=== PATIENT | male | born 1945 | race Caucasian/White ===

== ENCOUNTER → 2020-09-24 10:54 | Outpatient (BNVA) | payer MEDICARE, BC, SELFPAY | PROVIDERS: Family Provider Nurse Practitioner Family; PCP Nurse Practitioner Family; Visit Provider Nurse Practitioner Family | DX: R19.8 Other specified symptoms and signs involving the digestive system and abdomen (principal); R19.5 Other fecal abnormalities; R53.83 Other fatigue; N39.0 Urinary tract infection, site not specified; Z79.899 Other long term (current) drug therapy | CPT/HCPCS: 81003; 82306; 84443 ==

== ENCOUNTER 2020-10-04 12:54 | Outpatient (CLI) | payer MEDICARE, BC, SELFPAY ==
--- NOTE | 2020-10-04 13:00 | XR_ITS ---
WS: [id number] ABDOMEN 1 VIEW(S) HISTORY: R19.5 - Other fecal abnormalities COMPARISON: None available. Moderate fecal retention throughout the colon. Moderate air distention of the small bowel. No obstruc tion. Several calcifications in the RIGHT pelvis. Calcification in the LEFT upper abdomen. No bone abnormality. XR/XR KUB [id number] IMPRESSION: Moderate constipation and fecal retention.
== END 2020-10-04 12:55 | disposition home or self-care (01) ==
PROVIDERS: PCP Nurse Practitioner Family; Visit Provider Nurse Practitioner Family
DX: R19.5 Other fecal abnormalities (principal); K59.00 Constipation, unspecified
CPT/HCPCS: 74018

== ENCOUNTER 2023-07-15 11:00 | Observation (INO) | payer MEDICARE, SELFPAY ==
[2023-07-15] VITALS (17 sets, daily range): BP systolic 87–122; BP diastolic 57–83; PULSE 68–141; RESP 15–20; TEMP 36.6–36.9; O2SAT 93–98; BMI 19.8
--- NOTE | 2023-07-15 11:29 | PC.NURSE ---
pt assessment pt states to he fell approx 7 days ago and had a headache for a few days. pt is now complaining of right sided abdominal pain for approx 5 days. no fever pt states. pt states normal appetite. pt states he has had indigestion. pt states bm yesterday. no blood in stool.
--- NOTE | 2023-07-15 11:33 | XR_ITS ---
WS: [id number] KUB, AP view, 07/15/2023 Clinical Data: abd pain Comparison: KUB, 10/04/2020 Findings: No abnormal intraabdominal masses or calcifications are seen. There is no dilatated small bowel or ev idence of obstruction. There is a large amount of fecal material throughout the colon. Monitor leads are on the abdominal wa ll. Impression: Large amount of fecal material in the colon.
--- NOTE | 2023-07-15 11:34 | XR_ITS ---
WS: [id number] Portable AP upright chest, 07/15/2023 Clinical Data: dyspnea/cough Comparison: None. Findings: No nodules, masses or effusions are seen. The heart is normal. The pulmonary vascularity is not increased. No pneumonia or pneumothorax is seen. The aortic arch and descending thoracic aorta s how tortuosity. There are monitor leads on the chest wall. Impression: Atherosclerosis.
--- NOTE | 2023-07-15 11:35 | ECG_ITS ---
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 Measurements Intervals [place] Rate: 120 P: 0 OR: 0 QRS: -3 QRSD: 85 T: 79 QT: 288 QTc: 408 Interpretive Statements ATRIAL FIBRILLATION WITH RAPID VENTRICULAR RESPONSE Nonspecific ST abnormality No previous ECG available for comparison Electronically Signed On 07-15-2023 16:27:48 ELECTRONIC SYSTEMS TECHNICIAN by Nohemi Villavicencio M.D. [email or web address] [id number]
--- NOTE | 2023-07-15 11:36 | ED_ITS ---
HPI - Abdominal Pain 2 General: Chief Complaint: ER Hold Stated Complaint: abd pain Time Seen by Provider: 07/15/23 11:23 Source: patient Mode of arrival: ambulatory History of Present Illness: 78-year-old male presents emergency room complaining of right-sided abdominal pain with no bowel movement for the last 4 days. He has had pain for about a week he states it began after he fell he stumbled in a hole outside was covered by leaves he fell essentially landing on his hands and knees few days later began having this cramping pain under the right lower ribs has not had any vomiting or diarrhea he has had decreased appetite. Denies fever sweats chills or shortness of breath. Patient denies history of atrial fibrillation he is not on any anticoagulation he does take sennosides MD elicited complaint: abdominal pain Onset (ago): day(s) (4) Location: RUQ Severity: moderate Quality: aching Radiation: none Exacerbating factors: eating Relieving factors: nothing Associated Symptoms: Reports bloating, GI cramping and poor appetite; Denies anorexia, belching, change in bowel habits, change in stool character, chills, coffee ground emesis, constipation, diarrhea, dyspepsia, dysuria, excessive flatus, fever(s), heartburn, hematochezia, hematuria, hematemesis, fecal incontinence, loose stools, melena, nausea, syncope and vomiting Review of Systems 2 Const: Denies: fever(s) or chills Card: Denies: chest pain or syncope Resp: Denies: dyspnea GI: Reports: bloating and GI cramping; Denies: abdominal pain, nausea, vomiting, hematemesis, coffee ground emesis, heartburn, diarrhea, constipation, belching, excessive flatus, fecal incontinence, change in bowel habits, change in stool character, hematochezia or melena : Denies: dysuria, urinary frequency, urinary urgency or hematuria Musc: Denies: neck pain or back pain Skin/Breast: Denies: rash PFSH ED 2 PFSH: Social History Smoking and tobacco/nicotine status: never used tobacco/nicotine Alcohol intake: never Substance/Drug Use: never Physical Exam 2 Const: GENERAL APPEARANCE: cooperative and comfortable O RIENTATION/CONSCIOUSNESS: Yes awake, Yes oriented to person, Yes oriented to place and Yes oriented to time HENMT: COMMON NORMALS: normocephalic, atraumatic and hearing grossly normal bilaterally HEAD & SCALP: normocephalic and atraumatic Resp: COMMON NORMALS: normal respiratory effort, No retractions, No use of accessory muscles and clear to auscultation bilaterally AUSCULTATION: clear to auscultation bilaterally Cardio: COMMON NORMALS: No murmurs present (Cardio) RATE: tachycardic R HYTHM: abnormal rhythm irregularly irregular GI: COMMON NORMALS: Soft to palpation and No hepatosplenomegaly present A USCULTATION: Yes normoactive bowel sounds PALPATION: Yes Soft to palpation, No Tenderness to palpation present (GI), No Guarding due to palpation present (GI) and Yes No hepatosplenomegaly present Extremity: COMMON NORMALS: normal to inspection, capillary refill normal, no clubbing, cyanosis or edema, no calf tenderness and no pedal edema Neuro: SENSORIUM/ORIENTATION: Yes oriented to person, Yes oriented to place and Yes oriented to time Skin: COMMON NORMALS: no rashes or lesions noted GENERAL SKIN EXAM: no rashes or lesions noted Course 2 Vital Signs: Vital signs: Vital Signs Temperature 97.9 F 07/15/23 11:10 Pulse Rate 96 07/15/23 13:47 Respiratory Rate 17 07/15/23 13:17 Blood Pressure 107/78 07/15/23 13:47 Pulse Oximetry 98 07/15/23 13:47 Oxygen Delivery Me thod Room Air 07/15/23 13:17 MDM - Abdominal Pain Medical Decision Making Patient presents with complaints of abdominal pain does look like he has a significant mount of constipation more concerning is he is in atrial fibrillation with rapid ventricular sponsor did improve with diltiazem and this is a new diagnosis for him we will place him on obs to achieve rate control and evaluate further. Discussed with hospitalist orders written Medical Records I reviewed the patient's medical records. Lab Data I reviewed the patient's lab results. 07/15/23 11:43 07/15/23 11:43 Labs/Radiology: Laboratory Results WBC 7.41 10^3/uL (3.29-11.43) 07/15/23 11:43 RBC 4.90 10^6/uL (3.85-5.65) 07/15/23 11:43 Hgb 15.50 g/dL (11.27-16.99) 07/15/23 11:43 Hct 46.1 % (37-53) 07/15/23 11:43 MCV 94.1 fl (82-101) 07/15/23 11:43 MCH 31.6 pg (27-33) 07/15/23 11:43 MCHC 33.6 g/dL (30-55) 07/15/23 11:43 RDW 13.2 % (12.1-15.1) 07/15/23 11:43 Plt Count 149 10^3/cmm (157-399) L 07/15/23 11:43 MPV 10.6 fL (7.4-10.4) H 07/15/23 11:43 Neut % (Auto) 79.5 % 07/15/23 11:43 Lymph % (Auto) 9.9 % 07/15/23 11:43 Charles % (Auto) 9.6 % 07/15/23 11:43 Eos % (Auto) 0.3 % 07/15/23 11:43 Baso % (Auto) 0.4 % 07/15/23 11:43 Neut # (Auto) 5.90 10^3/uL (1.8-7.7) 07/15/23 11:43 Lymph # (Auto) 0.7 10^3/uL (0.8-4.8) L 07/15/23 11:43 Charles # (Auto) 0.7 10^3/uL (0.2-0.9) 07/15/23 11:43 Eos # (Auto) 0.0 10^3/uL (0.0-0.8) 07/15/23 11:43 Baso # (Auto) 0.0 10^3/uL (0.0-0.1) 07/15/23 11:43 Nucleated RBC % (auto) 0 % 07/15/23 11:43 Nucleated RBCs # 0.0 /100WBC 07/15/23 11:43 Sodium 136 mmol/L (136-145) 07/15/23 11:43 Potassium 3.9 mmol/L (3.5-5.1) 07/15/23 11:43 Chloride 98 mmol/L (98-107) 07/15/23 11:43 Carbon Dioxide 26 mmol/L (22-29) 07/15/23 11:43 Anion Gap 15.9 (5-19) 07/15/23 11:43 BUN 16 mg/dL (8-23) 07/15/23 11:43 Creatinine 0.9 mg/dL (0.7-1.2) 07/15/23 11:43 GFR Calculation Not Reportable 07/15/23 11:43 Glucose 116 mg/dL (65-115) H 07/15/23 11:43 Calculated Osmolality 284 mOsm/kg (285-295) L 07/15/23 11:43 Calcium 9.9 mg/dL (8.5-10.5) 07/15/23 11:43 Total Bilirubin 0.7 mg/dL (0.15-1.2) 07/15/23 11:43 AST 36 U/L (0-40) 07/15/23 11:43 ALT 17 U/L (0-41) 07/15/23 11:43 Alkaline Phosphatase 81 U/L (40-130) 07/15/23 11:43 Troponin T Baseline 13 ng/L (0-15) 07/15/23 11:43 Total Protein 7.6 g/dL (6.6-8.7) 07/15/23 11:43 Albumin 4.2 g/dL (3.5-5.2) 07/15/23 11:43 Globulin 3.4 g/dL (1.3-4.6) 07/15/23 11:43 TSH 1.50 uIU/mL (0.27-4.20) 07/15/23 11:43 Urine Color Dark yellow (Yellow) 07/15/23 11:39 Urine Appearance Clear (CLEAR) 07/15/23 11:39 Urine pH 5 (5-7) 07/15/23 11:39 Ur Specific [place] 1.030 (1.005-1.030) 07/15/23 11:39 Urine Protein Neg (Negative) 07/15/23 11:39 Urine Glucose (UA) Norm (Normal) 07/15/23 11:39 Urine Ketones 1+ (Negative) H 07/15/23 11:39 Urine Blood 2+ (Negative) H 07/15/23 11:39 Urine Nitrate Negative (Negative) 07/15/23 11:39 Urine Bilirubin Neg (Negative) 07/15/23 11:39 Urine Urobilinogen Norm mg/dL (Negative) 07/15/23 11:39 Ur Leukocyte Esterase Negative (Negative) 07/15/23 11:39 Urine RBC Rare /hpf (0-2) 07/15/23 11:39 Urine WBC None /hpf (0-5) 07/15/23 11:39 Ur Squamous Epith Cells Rare /hpf (0-5) 07/15/23 11:39 Amorphous Sediment Not Reportable 07/15/23 11:39 Urine Bacteria Trace /hpf (NONE) 07/15/23 11:39 Hyaline Casts 0-4 /lpf H 07/15/23 11:39 Urine Mucus 2+ /hpf 07/15/23 11:39 All radiology interpretation(s) finalized by discharge Discharge Plan Discharge Patient Disposition: Placed in Observation Admit Provider: Michell Nash Clinical Impression: Atrial fibrillation, new onset, Constipation Coding Level of Care Code ED 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
[2023-07-15 11:54] LABS: Basophils % 0.4 %; Eosinophils % 0.3 %; Hematocrit 46.1 % (37-53); Lymphocytes # 0.7 10^3/uL (0.8-4.8); Lymphocytes % 9.9 %; Mean Corpuscular HGB Conc 33.6 g/dL (30-55); Mean Corpuscular Hemoglobin 31.6 pg (27-33); Mean Corpuscular Volume 94.1 fl (82-101); Mean Platelet Volume 10.6 fL (7.4-10.4); Monocytes # 0.7 10^3/uL (0.2-0.9); Monocytes % 9.6 %; Neutrophils % 79.5 %; Nucleated Red Blood Cells % 0 %; Platelet Count 149 10^3/cmm (157-399); Red Cell Distribution Width 13.2 % (12.1-15.1); White Blood Count 7.41 10^3/uL (3.29-11.43)
[2023-07-15] MEDS: dilTIAZem 5 mg/mL SDV 5 mL 10 MG IVP (12:02)
[2023-07-15] MEDS: dilTIAZem 100 MG in sodium chloride 0.9% (add-van) 100 ML IV (12:35)
[2023-07-15 12:36] LABS: Alanine Aminotransferase 17 U/L (0-41); Albumin Level 4.2 g/dL (3.5-5.2); Alkaline Phosphatase 81 U/L (40-130); Anion Gap 15.9 (5-19); Aspartate Amino Transferase 36 U/L (0-40); Blood Urea Nitrogen 16 mg/dL (8-23); Calcium 9.9 mg/dL (8.5-10.5); Carbon Dioxide 26 mmol/L (22-29); Chloride 98 mmol/L (98-107); Globulin 3.4 g/dL (1.3-4.6); Glucose 116 mg/dL (65-115); Osmolality Calculated 284 mOsm/kg (285-295); Potassium 3.9 mmol/L (3.5-5.1); Sodium 136 mmol/L (136-145); Total Bilirubin 0.7 mg/dL (0.15-1.2); Total Protein 7.6 g/dL (6.6-8.7)
[2023-07-15] MEDS: sodium chloride 0.9% 1,000 ML 999 ML IV (12:40)
[2023-07-15 12:50] LABS: Troponin(5th) Baseline 13 ng/L (0-15)
[2023-07-15 12:56] LABS: Add Urine Microscopic? YES; Bilirubin Urine Neg (Negative); Blood Urine 2+ (Negative); Glucose Urine UA Norm (Normal); Ketones Urine 1+ (Negative); Leukocyte Esterase Urine Negative (Negative); Nitrate Urine Negative (Negative); Protein Urine Neg (Negative); Urine Appearance Clear (CLEAR); Urine Color Dark Yellow (Yellow); Urobilinogen Urine Norm (Negative); pH Urine 5 (5-7)
[2023-07-15 12:58] LABS: RBC Urine RARE /hpf (0-2)
[2023-07-15 12:59] LABS: Add Urine Culture? No; Bacteria Urine TRACE /hpf; Hyaline Casts Urine 0-4 /lpf; Mucus Urine 2+ /hpf; Squamous Epithelial Cell Urine RARE /hpf (0-5)
--- NOTE | 2023-07-15 13:42 | ECG_ITS ---
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 Measurements Intervals [place] Rate: 96 P: 0 AL: 0 QRS: 4 QRSD: 79 T: 81 QT: 329 QTc: 416 Interpretive Statements ATRIAL FIBRILLATION SEPTAL MYOCARDIAL INFARCTION , PROBABLY OLD [40+ ms Q WAVE IN V1/V2] Compared to ECG 07/15/2023 11:36:32 No significant changes Electronically Signed On 07-15-2023 16:53:25 CONTROL AND RECOVERY COMBAT RESCUE by Nohemi Villavicencio M.D. [id number]
[2023-07-15 14:23] LABS: Troponin 5 2HR 13.16 ng/L (0-15); Troponin 5 2HR Delta 0.16 ABS# (0-10)
--- NOTE | 2023-07-15 17:34 | USCV_ITS ---
Chalo Tabor Age: 78 Gender: M : 1945 Exam Date: 07/15/2023 20:19 Ordering Phys: Kevin Celeste MD Technologist: CRYSTAL Exam Location: [facility] – [place] Indication: new onset atrial fibrillation. No history of cardiac intervention per patient BP: 103 / 58 HR: 72 Rhythm: Atrial fibrillation Technical Quality: Adequate MEASUREMENTS (Male / Female) Normal Values 2D ECHO LV Diastolic Diameter PLAX 3.3 cm 4.2 - 5.9 / 3.9 - 5.3 cm LV Systolic Diameter PLAX 2.0 cm IVS Diastolic Thickness 0.9 cm 0.6 - 1.0 / 0.6 - 0.9 cm IVS Systolic Thickness 1.1 cm LVPW Diastolic Thickness 1.0 cm 0.6 - 1.0 / 0.6 - 0.9 cm LVPW Systolic Thickness 0.9 cm LVOT Diameter 1.9 cm LV Ejection Fraction 2D Teich 72.3 % LV Ejection Fraction MOD 2C 65.4 % LV Ejection Fraction 2C AL 65.5 % LA Diameter 2.8 cm LA Width 3.9 cm LA Height 3.8 cm RA Width 2.7 cm RA Height 4.7 cm Aorta at Sinotubular Diameter 3.1 cm IVC Diameter 1.3 cm M-MODE Aortic Annulus Diameter 3.2 cm LA Ao Ratio MM 0.9 MV E Point Septal Separation 0.6 cm DOPPLER AV Peak Velocity 127.0 cm/s LVOT Peak Velocity 75.0 cm/s AV Area Cont Eq vti 1.5 cm squared AV Area Cont Eq pk 1.6 cm squared MV Area PHT 5.0 cm squared MV E' Velocity 55.5 cm/s Mitral E to MV E' Ratio 9.3 Mitral E to LV E' Lateral Ratio 8.4 Mitral E to LV E' Septal Ratio 10.3 TR Peak Velocity 233.7 cm/s TR Peak Gradient 21.8 mmHg TV Peak E Velocity 30.0 cm/s Right Atrial Pressure 5.0 mmHg Pulmonary Artery Systolic Pressu 26.8 mmHg PV Peak Velocity 121.0 cm/s FINDINGS Left Ventricle Technically limited quality echocardiogram because of poor ultrasonic windows. LV systolic function is normal with EF of 60 to 65%. No regional wall motion abnormalities are seen. Right Ventricle Normal in size and function Right Atrium Normal in size Left Atrium Normal in size Mitral Valve Grossly normal. Mild mitral regurgitation. Aortic Valve Aortic valve is thickened. No significant stenosis or regurgitation. Tricuspid Valve Mild tricuspid regurgitation. Pulmonary artery systolic pressure is normal. Pulmonic Valve Trace pulmonic regurgitation. Pericardium Normal. Has pleural effusion noted. Aorta Normal in size IVC Appears to be normal CONCLUSIONS Technically limited quality echocardiogram because of poor ultrasonic windows. LV systolic function is normal with EF of 60 to 65%. Mild mitral regurgitation Mild tricuspid regurgitation Trace pulmonic regurgitation Pleural effusion noted No comparison studies are available. Perfecto Enrique MD (Electronically Signed) Final Date: 20 July 2023 08:32 S
--- NOTE | 2023-07-15 17:35 | P.HP_ITS ---
Providers/Chief Complaint 2 Admitting Physician: Michell Nash MD Primary Care Provider: Taniya Melgoza Chief Complaint: abd pain History of Present Illness Chalo Tabor is a 78 year old male with no significant past medical history other than constipation presented to the ER with right-sided abdominal pain. As per patient he was walking in his backyard when he tripped few days ago after which he started having right upper quadrant abdominal pain along with constipation. Patient has not had a bowel movement for 3 days other than a small had stool last night. In the ER he was found to have A-fib with RVR for which she was started on Cardizem drip and hospitalist service was consulted. Review of Systems 2 General: Reports: 10 or more systems reviewed and unremarkable except in HPI and below Const: Denies: fever(s), chills, body aches, change in appetite, change in weight, malaise, night sweats, diaphoresis, change in sleep pattern, daytime sleepiness or snoring Eyes: Denies: change in vision, blurry vision, photophobia, eye discomfort or eye discharge ENMT: Denies: throat pain, enlarged tonsils, hoarseness, mouth pain, oral sores, dry mouth, tinnitus, nasal congestion or post nasal drip Card: Denies: chest pain, palpitations, irregular heart rhythm, edema, swelling of feet/ankles, lightheadedness, syncope, pre-syncope, dyspnea on exertion, orthopnea, leg pain with exertion or acrocyanosis Resp: Denies: dyspnea, productive cough, non-productive cough, wheezing, stridor, pain on inspiration, change in phlegm color, hemoptysis or chest congestion GI: Denies: abdominal pain, nausea, vomiting, hematemesis, coffee ground emesis, dysphagia, heartburn, diarrhea, constipation, bloating, GI cramping, change in bowel habits, pain on defecation, hematochezia or melena : Denies: flank pain, difficulty urinating, dysuria, urinary frequency, urinary urgency, urinary hesitancy, urinary dribbling, difficulty starting urination, change in urine stream, nocturia or hematuria Musc: Denies: neck pain, back pain, extremity pain, joint pain, joint swelling, joint redness, joint stiffness or limited range of motion Neuro: Denies: headache(s), numbness in extremities, weakness in extremities, sensory changes, lack of coordination, difficulty walking, frequent falls, dizziness, vertigo, confusion, Slurred speech present, difficulty communicating thoughts or seizure-like activity Psych: Denies: anxiety, depression, mood swings, panic attacks, hopelessness or irritability Endo: Denies: polyuria, polydipsia, tired all the time, cold intolerance, excessive sweating, flushing or heat intolerance Lawson/Lymph: Denies: easy bruising or easy bleeding All/Imm: Denies: tongue swelling, facial swelling or acute wheezing Medications/Allergies Home Medications Medication Instructions Recorded Confirmed Last Taken Type ascorbic acid (vitamin C) 500 mg 500 mg PO DAILY 07/15/23 07/15/23 07/14/23 History tablet apixaban 5 mg tablet (Eliquis) 5 mg PO BID #60 tabs 07/16/23 Unknown Rx diltiazem HCl 120 mg 120 mg PO DAILY #30 caps 07/16/23 Unknown Rx capsule,extended release 24 hr (Cardizem CD) magnesium hydroxide 400 mg/5 mL 30 ml PO DAILY PRN constipation 07/16/23 Unknown Rx oral suspension (Milk of Magnesia) #3,780 mL Allergies Allergy/AdvReac Type Severity Reaction Status Date / Time No Known Allergies Allergy Verified 07/15/23 11:17 PFSH Acute 2 PFSH: Medical History (Updated 07/15/23 @ 18:18 by Kevin Celeste MD) No pertinent past medical history Surgical History (Updated 07/15/23 @ 18:15 by Kevin Celeste MD) No pertinent past surgical history Social History (Updated 07/15/23 @ 18:46 by Kevin Celeste MD) Smoking and tobacco/nicotine status: never used tobacco/nicotine Alcohol intake: former 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 date alcohol: 1974 Substance/Drug Use: never Caregiver/support person: Yes Lives independently: Yes Household members: family Housing: House Vitals/I&O/Wt Last Vital Signs Temp 97.9 F 07/15/23 11:10 Pulse 78 07/15/23 16:52 Resp 16 07/15/23 16:52 BP 108/57 07/15/23 16:52 Pulse Ox 94 07/15/23 16:52 O2 Del Method Room Air 07/15/23 15:27 07/15/23 07/15/23 07/15/23 06:59 14:59 22:59 Intake Total 772.875 / 772.875 19.375 / 792.250 Output Total 300 / 300 Balance 472.875 / 472.875 19.375 / 492.250 Weight last 48 hrs Weight 63.503 kg Physical Exam 2 Narrative: General: No acute distress, AO x3, Pleasant HEENT: PERRLA, pupils bilaterally equal and reactive Chest: Normal vesicular breath sounds, no added sounds, equal good air entry bilaterally CVS: S1-S2 irregularly irregular , no murmurs, no tachycardia, no gallops, no rubs Abdomen: Soft, nontender, no organomegaly, bowel sounds present Neuro: No focal deficits, no facial deformity, AO x3, power 5/5 in all limbs Data 07/16/23 04:23 07/16/23 04:23 A&P Assessment and plan (1) Atrial fibrillation, new onset: No past medical history. Currently on Cardizem at 15. Started on Cardizem 30 mg every 6 hourly. Wean Cardizem drip keeping heart rate below 100. Check echocardiogram, TSH, vitamin B12, folate levels. Discussed in detail with the patient regarding anticoagulation for stroke prevention. Discussed about merits versus demerits. Patient is unsure about the long-term anticoagulation but for now is agreeable to start. We did discuss that of anticoagulation he is at a higher risk of thromboembolic stroke and being on anticoagulation he is only at risk of catastrophic bleeding versus intra cranial hemorrhage if he is prone to falling. Patient states usually he is very stable on his feet but would want to think further before agreeing for a long-term anticoagulation. He is agreeable for starting as of now. Start on Eliquis 5 mg twice daily. (2) Constipation: Aggressive bowel regimen. Check CT abdomen pelvis given concerns for right abdominal pain after mechanical fall few days ago. (3) Abdominal pain: Plan Full code Cardiac diet Eliquis will suffice for DVT prophylaxis Protonix for PUD prophylaxis. Attestations 2 Medical Necessity Statement*: Admitted under observation for management of new onset A-fib with RVR, significant constipation with abdominal pain. Diagnoses Atrial fibrillation, new onset I48.91 Constipation K59.00 Abdominal pain R10.9
--- NOTE | 2023-07-15 17:42 | ECG_ITS ---
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 Measurements Intervals [place] Rate: 74 P: 0 [place]: 0 QRS: 6 QRSD: 84 T: 76 QT: 384 QTc: 426 Interpretive Statements ATRIAL FIBRILLATION SEPTAL MYOCARDIAL INFARCTION , PROBABLY OLD [40+ ms Q WAVE IN V1/V2] Compared to ECG 07/15/2023 14:02:25 No significant changes Electronically Signed On 07-16-2023 6:54:32 AIDS SOCIAL WORKER by Priscila Mora M.D. [id number]
[2023-07-15] MEDS: famotidine 20 mg Tablet PO (18:08)
[2023-07-15] MEDS: magnesium hydroxide 30 mL UDC PO (18:08)
[2023-07-15] MEDS: bisacodyl 5 mg Tablet 10 MG PO (18:08)
[2023-07-15] MEDS: sodium chloride 0.9% 1,000 ML 50 ML IV (18:09)
--- NOTE | 2023-07-15 18:12 | CTR_ITS ---
PROCEDURE INFORMATION: Exam: CT Abdomen And Pelvis Without Contrast Exam date and time: 07/15/2023 6:35 PM Age: 78 years old Clinical indication: Abdominal pain; Generalized; Additional info: Abd pain, constipation TECHNIQUE: Imaging protocol: Computed tomography of the abdomen and pelvis without contrast. Radiation optimization: All CT scans at this facility use at least one of these dose optimization techniques: automated exposure control; mA and/or kV adjustment per patient size (includes targeted exams where dose is matched to clinical indication); or iterative reconstruction. REPORTING DATA: Count of CT and Cardiac NM exams in prior 12 months: This patient has received 0 known CTs and 0 known cardiac nuclear medicine studies in the 12 months prior to the current study. COMPARISON: CR XR KUB portable [id number] 07/15/2023 11:56 AM RADIATION DOSE METRICS: Total DLP (mGy-cm): 357 FINDINGS: Lungs: Clear. Liver: Subcentimeter too small to characterize hepatic hypodensities, but most likely cysts. Gallbladder and bile ducts: No calcified stones. Unremarkable unenhanced appearance. Pancreas: Unremarkable unenhanced appearance. Spleen: Unremarkable. Adrenal glands: Unremarkable. Kidneys and ureters: No hydronephrosis. No renal or ureteral calculi. Stomach and bowel: Moderate amount of stool within the cecum and ascending colon. Mild diffuse gaseous distention of the transverse colon in loops of small bowel. No evidence of bowel obstruction. Sigmoid diverticulosis without evidence of acute diverticulitis. Appendix: No evidence of appendicitis. Intraperitoneal space: No free air. No significant fluid collection. Vasculature: Moderate atherosclerosis. No aortic aneurysm. Lymph nodes: No enlarged lymph nodes. Urinary bladder: Unremarkable as visualized. Reproductive: Prostatomegaly. Bones/joints: No acute fracture. Diffusely decreased density of the marrow within the L5 vertebra and sacrum, indeterminate, may be related to prior radiation, correlate clinically. Soft tissues: Unremarkable. CT/CT abdomen pelvis wo con [id number] IMPRESSION: 1. No acute findings. 2. Diffusely decreased density of the marrow within the L5 vertebra and sacrum, indeterminate, may be related to prior radiation therapy, correlate clinically.
[2023-07-15] MEDS: dilTIAZem 30 mg Tablet PO ×2 (18:23→23:53)
[2023-07-15 18:32] LABS: Add Urine Microscopic? NO; Charge for UA Resulting for Rev
[2023-07-15 18:39] LABS: Bilirubin Urine Neg (Negative); Blood Urine Neg (Negative); Glucose Urine UA Norm (Normal); Ketones Urine 1+ (Negative); Leukocyte Esterase Urine Negative (Negative); Nitrate Urine Negative (Negative); Protein Urine Neg (Negative); Specific Gravity, Urine 1.015 (1.005-1.030); Urine Appearance Clear (CLEAR); Urine Color Yellow (Yellow); Urobilinogen Urine Norm (Negative); pH Urine 5 (5-7)
[2023-07-15 18:40] LABS: Troponin 5 6HR 13.36 ng/L (0-15); Troponin 5 6HR Delta 0.36 ng/L (0-12)
[2023-07-15 18:56] LABS: Iron 31 ug/dL (59-158); Percent Saturation 15.6 % (20-50); Total Iron Binding Capacity 198 mcg/dl; Unsaturated Iron Binding 167 ug/dL (112-347); Vitamin B12 517 pg/mL (232-1245)
--- NOTE | 2023-07-15 20:05 | PC.NURSE ---
Heart rate currently controlled in the 70s. First dose of PO cardizem given in ED. Will continue to monitor.
[2023-07-15] MEDS: sennosides 8.6 mg Tablet 17.2 MG PO (21:41)
[2023-07-15] MEDS: apixaban 5 mg Tablet PO (21:41)
[2023-07-16] VITALS: BP 96/69; PULSE 82; RESP 17; TEMP 36.8; O2SAT 95
[2023-07-16 04:00] VITALS: BP 107/73; PULSE 77; RESP 20; TEMP 36.9; O2SAT 97
[2023-07-16 04:22] VITALS: PULSE 67
[2023-07-16 04:49] LABS: Basophils % 0.6 %; Eosinophils # 0.1 10^3/uL (0.0-0.8); Eosinophils % 0.9 %; Hematocrit 42.2 % (37-53); Lymphocytes # 0.8 10^3/uL (0.8-4.8); Lymphocytes % 10.7 %; Mean Corpuscular HGB Conc 32.5 g/dL (30-55); Mean Corpuscular Hemoglobin 31.4 pg (27-33); Mean Corpuscular Volume 96.6 fl (82-101); Mean Platelet Volume 10.8 fL (7.4-10.4); Monocytes # 0.9 10^3/uL (0.2-0.9); Monocytes % 12.4 %; Neutrophils % 75.3 %; Nucleated Red Blood Cells % 0 %; Platelet Count 136 10^3/cmm (157-399); Red Blood Count 4.37 10^6/uL (3.85-5.65); Red Cell Distribution Width 13.4 % (12.1-15.1); White Blood Count 7.03 10^3/uL (3.29-11.43)
[2023-07-16 05:08] LABS: Alanine Aminotransferase 18 U/L (0-41); Albumin Level 3.5 g/dL (3.5-5.2); Alkaline Phosphatase 68 U/L (40-130); Anion Gap 13.8 (5-19); Aspartate Amino Transferase 35 U/L (0-40); Blood Urea Nitrogen 15 mg/dL (8-23); Calcium 8.8 mg/dL (8.5-10.5); Carbon Dioxide 24 mmol/L (22-29); Chloride 100 mmol/L (98-107); Globulin 2.9 g/dL (1.3-4.6); Glucose 107 mg/dL (65-115); Magnesium 1.9 mg/dL (1.7-2.3); Osmolality Calculated 279 mOsm/kg (285-295); Potassium 3.8 mmol/L (3.5-5.1); Sodium 134 mmol/L (136-145); Total Bilirubin 0.6 mg/dL (0.15-1.2); Total Protein 6.4 g/dL (6.6-8.7)
[2023-07-16 05:10] LABS: Chol HDL Ratio 2.59 mg/dL (1.0-5.00); Cholesterol 145 mg/dL (0-200); HDL Cholesterol 56 mg/dL (60-100); LDL Cholesterol Calculated 81 mg/dL (50-129); LDL HDL Ratio 1.45 RATIO (0.00-3.22); Triglycerides 41 mg/dL (0-150)
[2023-07-16 05:52] LABS: Folate Level > 20.0 ng/mL (4.5-32.2)
[2023-07-16] MEDS: dilTIAZem 30 mg Tablet PO (06:02)
[2023-07-16 06:19] LABS: Estmated Average Glucose 114; Hemoglobin A1C 5.6 % (4.0-6.0)
[2023-07-16 08:00] VITALS: BP 103/67; PULSE 77; RESP 15; TEMP 36.5; O2SAT 97
--- NOTE | 2023-07-16 08:40 | P.DS_ITS ---
Discharge Providers Date of Admission: 07/15/23 12:53 Date of Discharge: July 16, 2023 Attending Provider at Admission: Michell Nash MD Attending Provider at Discharge: Kevin Celeste MD Primary Care Provider: Taniya Melgoza Diagnoses at Discharge Discharge Diagnosis (1) Atrial fibrillation, new onset: Status: Acute (2) Constipation: Status: Acute (3) Abdominal pain: Status: Acute Reason for Visit Reason for Visit: abd pain Hospital Course Hospital Course Chalo Tabor is a 78 year old male with no significant past medical history other than constipation presented to the ER with right-sided abdominal pain. As per patient he was walking in his backyard when he tripped few days ago after which he started having right upper quadrant abdominal pain along with constipation. Patient has not had a bowel movement for 3 days other than a small had stool last night. In the ER patient was found to be in A-fib with RVR. He was started on Cardizem drip which was later transitioned to oral Cardizem. He was started on aggressive bowel regimen after which he had multiple regular bowel movements. Discussed in detail with the patient regarding anticoagulation for stroke prevention. Discussed about merits versus demerits. Patient is unsure about the long-term anticoagulation but for now is agreeable to start. We did discuss that of anticoagulation he is at a higher risk of thromboembolic stroke and being on anticoagulation he is only at risk of catastrophic bleeding versus intra cranial hemorrhage if he is prone to falling. Patient states usually he is very stable on his feet but would want to think further before agreeing for a long-term anticoagulation.He is agreeable for starting as of now. He has been discharged in hemodynamically stable condition on oral Cardizem and Eliquis 5 mg twice daily. His primary care provider will be made. Echocardiogram has been done but results still awaited. Physical Exam Narrative: General: No acute distress, AO x3, Pleasant HEENT: PERRLA, pupils bilaterally equal and reactive Chest: Normal vesicular breath sounds, no added sounds, equal good air entry bilaterally CVS: S1-S2 irregularly irregular , no murmurs, no tachycardia, no gallops, no rubs Abdomen: Soft, nontender, no organomegaly, bowel sounds present Neuro: No focal deficits, no facial deformity, AO x3, power 5/5 in all limbs Discharge Data Studies Completed and Pending Completed Studies During Hospitalization Category Date Time Status CT abdomen pelvis wo con [id number] Routine Cat Scan 07/15/23 18:12 Completed XR KUB portable [id number] Stat Exams 07/15/23 11:33 Completed XR chest 1V portable [id number] Stat Exams 07/15/23 11:34 Completed Pending at discharge Category Date Time Status CV. echo complete* [id number] Routine Ultrasound 07/15/23 17:34 Taken Radiology Impressions Abdomen/Pelvis CT 07/15/23 18:12 IMPRESSION: 1. No acute findings. 2. Diffusely decreased density of the marrow within the L5 vertebra and sacrum, indeterminate, may be related to prior radiation therapy, correlate clinically. Laboratory Results WBC 7.03 10^3/uL (3.29-11.43) 07/16/23 04:23 RBC 4.37 10^6/uL (3.85-5.65) 07/16/23 04:23 Hgb 13.70 g/dL (11.27-16.99) 07/16/23 04:23 Hct 42.2 % (37-53) 07/16/23 04:23 MCV 96.6 fl (82-101) 07/16/23 04:23 MCH 31.4 pg (27-33) 07/16/23 04:23 MCHC 32.5 g/dL (30-55) 07/16/23 04:23 RDW 13.4 % (12.1-15.1) 07/16/23 04:23 Plt Count 136 10^3/cmm (157-399) L 07/16/23 04:23 MPV 10.8 fL (7.4-10.4) H 07/16/23 04:23 Neut % (Auto) 75.3 % 07/16/23 04:23 Lymph % (Auto) 10.7 % 07/16/23 04:23 [place] % (Auto) 12.4 % 07/16/23 04:23 Eos % (Auto) 0.9 % 07/16/23 04:23 Baso % (Auto) 0.6 % 07/16/23 04:23 Neut # (Auto) 5.30 10^3/uL (1.8-7.7) 07/16/23 04:23 Lymph # (Auto) 0.8 10^3/uL (0.8-4.8) 07/16/23 04:23 [place] # (Auto) 0.9 10^3/uL (0.2-0.9) 07/16/23 04:23 Eos # (Auto) 0.1 10^3/uL (0.0-0.8) 07/16/23 04:23 Baso # (Auto) 0.0 10^3/uL (0.0-0.1) 07/16/23 04:23 Nucleated RBC % (auto) 0 % 07/16/23 04:23 Nucleated RBCs # 0.0 /100WBC 07/16/23 04:23 Sodium 134 mmol/L (136-145) L 07/16/23 04:23 Potassium 3.8 mmol/L (3.5-5.1) 07/16/23 04:23 Chloride 100 mmol/L (98-107) 07/16/23 04:23 Carbon Dioxide 24 mmol/L (22-29) 07/16/23 04:23 Anion Gap 13.8 (5-19) 07/16/23 04:23 BUN 15 mg/dL (8-23) 07/16/23 04:23 Creatinine 0.7 mg/dL (0.7-1.2) 07/16/23 04:23 GFR Calculation Not Reportable 07/16/23 04:23 Glucose 107 mg/dL (65-115) 07/16/23 04:23 Estimat Average Glucose 114 07/16/23 04:23 Hemoglobin A1c 5.6 % (4.0-6.0) 07/16/23 04:23 Calculated Osmolality 279 mOsm/kg (285-295) L 07/16/23 04:23 Calcium 8.8 mg/dL (8.5-10.5) 07/16/23 04:23 Phosphorus 3.0 mg/dL (2.5-4.5) 07/16/23 04:23 Magnesium 1.9 mg/dL (1.7-2.3) 07/16/23 04:23 Iron 31 ug/dL (59-158) L 07/15/23 17:47 TIBC 198 mcg/dl 07/15/23 17:47 % Saturation 15.6 % (20-50) L 07/15/23 17:47 Unsat Iron Binding 167 ug/dL (112-347) 07/15/23 17:47 Total Bilirubin 0.6 mg/dL (0.15-1.2) 07/16/23 04:23 AST 35 U/L (0-40) 07/16/23 04: ALT 18 U/L (0-41) 07/16/23 04:23 Alkaline Phosphatase 68 U/L (40-130) 07/16/23 04:23 Troponin T Baseline 13 ng/L (0-15) 07/15/23 11:43 Troponin T 120 Minute 13.16 ng/L (0-15) 07/15/23 13:54 Delta Troponin T 0.16 ABS# (0-10) 07/15/23 13:54 Troponin T Hi Sens 6Hr 13.36 ng/L (0-15) 07/15/23 17:47 Troponin T Hi Sens 6Hr Delta 0.36 ng/L (0-12) 07/15/23 17:47 Total Protein 6.4 g/dL (6.6-8.7) L 07/16/23 04:23 Albumin 3.5 g/dL (3.5-5.2) 07/16/23 04:23 Globulin 2.9 g/dL (1.3-4.6) 07/16/23 04:23 Triglycerides 41 mg/dL (0-150) 07/16/23 04: Cholesterol 145 mg/dL (0-200) 07/16/23 04:23 LDL Cholesterol, Calc 81 mg/dL (50-129) 07/16/23 04: HDL Cholesterol 56 mg/dL (60-100) L 07/16/23 04:23 LDL/HDL Ratio 1.45 RATIO (0.00-3.22) 07/16/23 04:23 Cholesterol/HDL Ratio 2.59 mg/dL (1.0-5.00) 07/16/23 04:23 Vitamin B12 517 pg/mL (232-1245) 07/15/23 17:47 Folate > 20.0 ng/mL (4.5-32.2) 07/16/23 04:23 TSH 1.50 uIU/mL (0.27-4.20) 07/15/23 11:43 Urine Color Yellow (Yellow) 07/15/23 18:25 Urine Appearance Clear (CLEAR) 07/15/23 18:25 Urine pH 5 (5-7) 07/15/23 18:25 Ur Specific [place] 1.015 (1.005-1.030) 07/15/23 18:25 Urine Protein Neg (Negative) 07/15/23 18:25 Urine Glucose (UA) Norm (Normal) 07/15/23 18:25 Urine Ketones 1+ (Negative) H 07/15/23 18:25 Urine Blood Neg (Negative) 07/15/23 18:25 Urine Nitrate Negative (Negative) 07/15/23 18:25 Urine Bilirubin Neg (Negative) 07/15/23 18:25 Urine Urobilinogen Norm mg/dL (Negative) 07/15/23 18:25 Ur Leukocyte Esterase Negative (Negative) 07/15/23 18:25 Urine RBC Rare /hpf (0-2) 07/15/23 11:39 Urine WBC None /hpf (0-5) 07/15/23 11:39 Ur Squamous Epith Cells Rare /hpf (0-5) 07/15/23 11:39 Amorphous Sediment Not Reportable 07/15/23 11:39 Urine Bacteria Trace /hpf (NONE) 07/15/23 11:39 Hyaline Casts 0-4 /lpf H 07/15/23 11:39 Urine Mucus 2+ /hpf 07/15/23 11:39 Vitals Last Vital Signs Temp 97.7 F 07/16/23 08:00 Pulse 77 07/16/23 08:00 Resp 15 07/16/23 08:00 BP 103/67 07/16/23 08:00 Pulse Ox 97 07/16/23 08:00 O2 Del Method Room Air 07/16/23 08:00 Discharge Plan Discharge Patient Disposition: Home Condition: Stable Prescriptions: New Cardizem CD 120 mg capsule,extended release 24hr 120 mg PO DAILY Qty: 30 3RF Eliquis 5 mg tablet 5 mg PO BID Qty: 60 0RF Milk of Magnesia 400 mg/5 mL Suspension 30 ml PO DAILY PRN (Reason: constipation) Qty: 3780 0RF Continued Super C-Complex 500 mg Tablet 500 mg PO DAILY Discharge Orders: Discharge Order (Routine); Ordered 07/16/23 Ordered By: Kevin Celeste Referrals: Taniya Melgoza [Primary Care Provider] - 07/21/23 11:30 am Discharge Diet: Regular Discharge Activity: Resume usual activity and Increase activity as tolerated Patient Instructions: Diltiazem (By mouth) (Cardizem, Cardizem CD, Cardizem LA, Cardizem SR), Magnesium Hydroxide (By mouth) ([place] Milk of Magnesia, Milk Of..., Apixaban (By mouth) (Eliquis), A-fib (Atrial Fibrillation) (DC), Opioid Safety Activity Restrictions/Additional Instructions: Eliquis 5 mg twice daily is due to blood thinners. You should be taking Eliquis for the rest of cellulitis of stroke prevention. If you have any excessive bleeding please present to the ER or get in touch with her primary care provider. Please follow-up with a primary care provider onsite appointment. Take Cardizem daily which is the medication to control your heart rate. Discharge Attestations Time Spent in Discharge Care*: greater than 30 min Specific Discharge Activities: educating patient, discussing with pcp/other providers, discussing with continuous pillowcase cutter/social workers/dc planners, documenting/other paperwork and evaluating patient/reviewing data Quality Metrics Clinical Quality Measures [ No reported AMI, CVA or VTE this stay] Coding Level of Care Code 81373 Total time (in minutes) for Discharge: 60 Diagnoses Atrial fibrillation, new onset I48.91 Constipation K59.00 Abdominal pain R10.9
[2023-07-16] MEDS: apixaban 5 mg Tablet PO (08:50)
[2023-07-16] MEDS: famotidine 20 mg Tablet PO (08:51)
[2023-07-16] MEDS: bisacodyl 5 mg Tablet 10 MG PO (08:51)
[2023-07-16] MEDS: magnesium hydroxide 30 mL UDC PO (08:52)
--- NOTE | 2023-07-16 09:04 | PC.CHAP ---
Pastoral Care Encounter/Spiritual Assessment Type of Contact [] Declined senior computer specialist visit [] Patient/Family/Request visit [] Outpatient visit [] Follow-up visit [] Physician referral [] Code/Alert [x] Routine visit [] Staff referral [] Actively dying [] Patient sleeping [] Family support [] [] Out of room [] Palliative care [] [] Receiving care in room [] Pre-surgical visit [] Trauma [] Long length of stay [] ICU visit [] Other: Relational/Emotional Strength [x] Patient feels connected with others/family/visitors/staff [] Distress [] Loneliness/isolation [] Abandonment Spirituality of Patient [x] Person of Sara [] Attends Hoahaoism of their Sara [x] Believes in Prayer [] Reads Bible or Amish materials [] There are Spiritual issues to be addressed Data Abstractor Interventions [x] Prayer [x] Active listening [] Non-anxious presence [x] Spiritual/emotional support [] Crisis/trauma care [] Spiritual counseling [] Bereavement support [] Provided bereavement packet [] Provided Bible/devotional materials [] Provided toy/stuffed animal, coloring book to patient or family member [] Provided Communion [] Anointing/[place] [] Salvation [x] Completed spiritual assessment [] Other: Impact on Illness or Injury [] Angry [] Fearful [] Anxious [] Often cries [] Exhaustion [] Unable to work [] Unable to attend alevism [] Unable to walk/stand [] Unable to read [] Unable to drive [] Unable to eat/drink [] Unable to sleep [] Unable to be with family [] Patient intubated [] Other: Summary Time spent with patient 5 min
[2023-07-16 11:07] VITALS: BP 103/67; PULSE 88; RESP 16; O2SAT 94
[2023-07-16 11:28] VITALS: BP 109/73; PULSE 102; RESP 23; TEMP 36.8
== END 2023-07-16 12:14 | disposition home or self-care (01) ==
LOC: ER 12:20 → ER IP 13:01 → CSU 18:10
PROVIDERS: Admitting Provider Student in an Organized Health Care Education/Training Program; Emergency Provider Family Medicine; PCP Nurse Practitioner Family; Visit Provider Student in an Organized Health Care Education/Training Program
DX: I48.91 Unspecified atrial fibrillation (principal); K59.00 Constipation, unspecified; R10.9 Unspecified abdominal pain; Z91.81 History of falling; I08.1 Rheumatic disorders of both mitral and tricuspid valves; R06.00 Dyspnea, unspecified; R05.9 Cough, unspecified
CPT/HCPCS: 36415; 71045; 74018; 74176; 80053; 80061; 81001; 81003; 81015; 82607; 82746; 83036; 83540; 83550; 83735; 84100; 84443; 84484; 85025; 93005; 93306; 94664; 96365; 96375; 96376; 99285; G0378; J3490; J7030

== ENCOUNTER 2023-07-18 03:03 | Emergency (ER) | payer MEDICARE, SELFPAY ==
[2023-07-18 03:09] VITALS: BP 123/76; PULSE 80; RESP 18; TEMP 36.4; O2SAT 98; BMI 19.6
[2023-07-18] MEDS: sodium chloride 0.9% 1,000 ML 999 ML IV (04:03)
[2023-07-18 04:15] LABS: Basophils % 0.3 %; Eosinophils % 0.1 %; Hematocrit 41.7 % (37-53); Lymphocytes % 14.5 %; Mean Corpuscular HGB Conc 33.8 g/dL (30-55); Mean Corpuscular Hemoglobin 31.3 pg (27-33); Mean Corpuscular Volume 92.5 fl (82-101); Mean Platelet Volume 10.5 fL (7.4-10.4); Monocytes # 0.9 10^3/uL (0.2-0.9); Monocytes % 12.6 %; Neutrophils # 4.94 10^3/uL (1.8-7.7); Neutrophils % 72.2 %; Nucleated Red Blood Cells % 0 %; Platelet Count 153 10^3/cmm (157-399); Red Blood Count 4.51 10^6/uL (3.85-5.65); White Blood Count 6.84 10^3/uL (3.29-11.43)
--- NOTE | 2023-07-18 04:27 | W.ED.NAVMDI ---
HPI - Nausea/Vomiting/Diarrhea General: Chief complaint: Nausea/Vomiting/Diarrhea Stated complaint: watery stools Time Seen by Provider: 07/18/23 03:19 History of Present Illness: 78-year-old male complaining of watery stools, and right-sided flank pain. He states this has been going on on and off since before his last hospitalization, which she was discharged from 2 days ago. He was diagnosed with new onset atrial fibrillation at that point. However, he had had this same right-sided abdominal/flank pain after a fall the day prior to his admission. It seemed to come back this morning along with watery stool. No blood in the stool. He vomited 1 time this morning as well. No fever. No history of belly surgery. No increased shortness of breath. No chest discomfort. Associated nausea: Yes Associated symtoms: Reports nausea; Denies change in vision, chest pain, dizziness, headache(s) or palpitations Review of Systems Const: Denies: fever(s), chills or body aches Eyes: Denies: change in vision Card: Denies: chest pain or palpitations Resp: Denies: dyspnea, productive cough, non-productive cough or wheezing GI: Reports: abdominal pain, nausea, vomiting and diarrhea; Denies: hematochezia Skin/Breast: Denies: rash Neuro: Denies: headache(s), weakness in extremities, dizziness or confusion PFS ED PFSH: Medical History (Updated 07/18/23 @ 05:57 by Kel Edwards DO) No pertinent past medical history Surgical History (Updated 07/15/23 @ 18:15 by Kevin Celeste MD) No pertinent past surgical history Social History (Updated 07/15/23 @ 18:46 by Kevin Celeste MD) Smoking and tobacco/nicotine status: never used tobacco/nicotine Alcohol intake: former 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 date alcohol: 1974 Substance/Drug Use: never Caregiver/support person: Yes Lives independently: Yes Household members: family Housing: House Physical Exam Const: COMMON NORMALS: no acute distress GENERAL APPEARANCE: cooperative; not ill appearing and not frail appearing HENMT: COMMON NORMALS: normocephalic, atraumatic and Normal external nose present HEAD & SCALP: normocephalic and atraumatic FACE & SINUS: normal facial exam and face symmetric NOSE: Normal external nose present Eye: COMMON NORMALS: Equal, round and reactive pupils present and EOMs intact bilaterally PUPIL: Yes Equal, round and reactive pupils present Neck/C-Spine: GENERAL: Yes trachea midline Chest: CHEST: Yes Symmetrical chest wall rise Resp: COMMON NORMALS: normal respiratory effort, No retractions, No use of accessory muscles and clear to auscultation bilaterally AUSCULTATION: clear to auscultation bilaterally Cardio: COMMON NORMALS: regular rate and regular rhythm RATE: regular rate RHYTHM: regular rhythm GI: COMMON NORMALS: Normal to inspection, nondistended, normoactive bowel sounds present PALPATION: Yes Tenderness to palpation present (GI) (Mild right upper quadrant) : BLADDER/KIDNEY EXAM: Yes CVA tenderness on the right Back/Pelvis: GENERAL BACK: Yes CVA tenderness Extremity: COMMON NORMALS: no pedal edema Neuro: SUSAN COMA SCALE: document GCS findings [place] coma scale eye opening: Spontaneous [place] coma scale verbal response: Orientated [place] coma scale motor response: Obey commands Susan coma scale total score: 15 SENSORY EXAM: Yes extremities (intact) Psych: COMMON NORMALS: speech normal SPEECH: Yes normal speech Skin: COMMON NORMALS: no rashes or lesions noted GENERAL SKIN EXAM: no rashes or lesions noted Course Vital Signs: Vital signs: Vital Signs Temperature 97.5 F L 07/18/23 03:09 Pulse Rate 87 07/18/23 06:40 Respiratory Rate 18 07/18/23 06:40 Blood Pressure 123/76 07/18/23 03:09 Pulse Oximetry 94 07/18/23 06:40 Oxygen Delivery Me thod Room Air 07/18/23 03:09 MDM - Nausea/Vomiting/Diarrhea Medical Decision Making 78-year-old male with watery stool, and right-sided pain. Urinalysis shows only rare red blood cells. Platelet count is 153. Hemoglobin is 14. BMP is not remarkable. Lactic acid is 1.3. CRP is only 10. Lipase is minimally elevated at 70. KUB shows gaseous distention of large bowel with no obstruction. There is improved constipation from 07/15. He will stop MOM which he has still been taking. He will follow up with PCP. Declines pain medication here. He will take tylenol. Lab Data 07/18/23 03:59 07/18/23 03:59 Radiology Impressions KUB X-Ray 07/18/23 05:27 IMPRESSION: 1. Nonspecific gaseous distention of the colon. 2. No sign of small bowel obstruction. Laboratory Results WBC 6.84 10^3/uL (3.29-11.43) 07/18/23 03:59 RBC 4.51 10^6/uL (3.85-5.65) 07/18/23 03:59 Hgb 14.10 g/dL (11.27-16.99) 07/18/23 03:59 Hct 41.7 % (37-53) 07/18/23 03:59 MCV 92.5 fl (82-101) 07/18/23 03:59 MCH 31.3 pg (27-33) 07/18/23 03:59 MCHC 33.8 g/dL (30-55) 07/18/23 03:59 RDW 13.0 % (12.1-15.1) 07/18/23 03:59 Plt Count 153 10^3/cmm (157-399) L 07/18/23 03:59 MPV 10.5 fL (7.4-10.4) H 07/18/23 03:59 Neut % (Auto) 72.2 % 07/18/23 03:59 Lymph % (Auto) 14.5 % 07/18/23 03:59 [place] % (Auto) 12.6 % 07/18/23 03:59 Eos % (Auto) 0.1 % 07/18/23 03:59 Baso % (Auto) 0.3 % 07/18/23 03:59 Neut # (Auto) 4.94 10^3/uL (1.8-7.7) 07/18/23 03:59 Lymph # (Auto) 1.0 10^3/uL (0.8-4.8) 07/18/23 03:59 [place] # (Auto) 0.9 10^3/uL (0.2-0.9) 07/18/23 03:59 Eos # (Auto) 0.0 10^3/uL (0.0-0.8) 07/18/23 03:59 Baso # (Auto) 0.0 10^3/uL (0.0-0.1) 07/18/23 03:59 Nucleated RBC % (auto) 0 % 07/18/23 03:59 Nucleated RBCs # 0.0 /100WBC 07/18/23 03:59 PT 18.70 SECONDS (12.1-14.9) H 07/18/23 03:59 INR 1.51 (0.8-1.2) H 07/18/23 03:59 APTT 33.6 SECONDS (23.9-36.7) 07/18/23 03:59 Sodium 137 mmol/L (136-145) 07/18/23 03:59 Potassium 3.7 mmol/L (3.5-5.1) 07/18/23 03:59 Chloride 98 mmol/L (98-107) 07/18/23 03:59 Carbon Dioxide 27 mmol/L (22-29) 07/18/23 03:59 Anion Gap 15.7 (5-19) 07/18/23 03:59 BUN 16 mg/dL (8-23) 07/18/23 03:59 Creatinine 0.8 mg/dL (0.7-1.2) 07/18/23 03:59 GFR Calculation Not Reportable 07/18/23 03:59 Glucose 129 mg/dL (65-115) H 07/18/23 03:59 Calculated Osmolality 287 mOsm/kg (285-295) 07/18/23 03:59 Lactic Acid 1.3 mmol/L (0.5-2.2) 07/18/23 03:59 Calcium 9.4 mg/dL (8.5-10.5) 07/18/23 03:59 Total Bilirubin 0.5 mg/dL (0.15-1.2) 07/18/23 03:59 AST 45 U/L (0-40) H 07/18/23 03:59 ALT 31 U/L (0-41) 07/18/23 03:59 Alkaline Phosphatase 81 U/L (40-130) 07/18/23 03:59 C-Reactive Protein 10.1 mg/L (0.0-4.9) H 07/18/23 03:59 Total Protein 7.2 g/dL (6.6-8.7) 07/18/23 03:59 Albumin 4.0 g/dL (3.5-5.2) 07/18/23 03:59 Globulin 3.2 g/dL (1.3-4.6) 07/18/23 03:59 Lipase 71 U/L (13-60) H 07/18/23 03:59 Urine Color Yellow (Yellow) 07/18/23 04:33 Urine Appearance Clear (CLEAR) 07/18/23 04:33 Urine pH 5 (5-7) 07/18/23 04:33 Ur Specific [place] 1.025 (1.005-1.030) 07/18/23 04:33 Urine Protein Trace (Negative) 07/18/23 04:33 Urine Glucose (UA) Norm (Normal) 07/18/23 04:33 Urine Ketones 1+ (Negative) H 07/18/23 04:33 Urine Blood Neg (Negative) 07/18/23 04:33 Urine Nitrate Negative (Negative) 07/18/23 04:33 Urine Bilirubin Neg (Negative) 07/18/23 04:33 Urine Urobilinogen Neg mg/dL (Negative) 07/18/23 04:33 Ur Leukocyte Esterase Negative (Negative) 07/18/23 04:33 Urine RBC Rare /hpf (0-2) 07/18/23 04:33 Urine WBC Rare /hpf (0-5) 07/18/23 04:33 Ur Squamous Epith Cells None /hpf (0-5) 07/18/23 04:33 Amorphous Sediment 1+ /hpf 07/18/23 04:33 Urine Bacteria None /hpf (NONE) 07/18/23 04:33 Urine Mucus 3+ /hpf 07/18/23 04:33 All radiology interpretation(s) finalized by discharge Discharge Plan Discharge Patient Disposition: Home Clinical Impression: Diarrhea Condition: Stable Prescriptions: New ondansetron 4 mg film 4 mg PO DAILY PRN (Reason: nausea and vomiting) Qty: 10 0RF No Action ascorbic acid (vitamin C) 500 mg Tablet 500 mg PO DAILY Cardizem CD 120 mg capsule,extended release 24hr 120 mg PO DAILY Qty: 30 3RF Eliquis 5 mg tablet 5 mg PO BID Qty: 60 0RF Milk of Magnesia 400 mg/5 mL Suspension 30 ml PO DAILY PRN (Reason: constipation) Qty: 3780 0RF Discharge Orders: Discharge ED (Routine); Ordered 07/18/23 Ordered By: Kel Edwards Referrals: Taniya Melgoza [Primary Care Provider] - 4-7 days Patient Instructions: Diarrhea - Adult, Opioid Safety, Pain Management Activity Restrictions/Additional Instructions: Medicine given to you in the ER should help with your symptoms. No need for ongoing treatment. Monitor closely for fever, and return for fever greater than 100, vomiting liquids or medications despite treatment, other concerning symptoms. Follow a liquid diet for the next 12 hours, then advance as tolerated. Coding Level of Care Code ED Landscape Laborer for Carleen Damon
[2023-07-18 04:33] LABS: C Reactive Protein 10.1 mg/L (0.0-4.9); Lactic Sepsis W/Reflex 1.3 mmol/L (0.5-2.2); Lipase 71 U/L (13-60)
[2023-07-18 04:37] LABS: Partial Thromboplastin Time 33.6 SECONDS (23.9-36.7)
[2023-07-18 04:50] LABS: INR 1.51 (0.8-1.2)
[2023-07-18 05:03] LABS: Add Urine Culture? No; Add Urine Microscopic? YES; Amorphous Sediment Urine 1+ /hpf; Bilirubin Urine Neg (Negative); Blood Urine Neg (Negative); Glucose Urine UA Norm (Normal); Ketones Urine 1+ (Negative); Leukocyte Esterase Urine Negative (Negative); Mucus Urine 3+ /hpf; Nitrate Urine Negative (Negative); Protein Urine Trace (Negative); RBC Urine RARE /hpf (0-2); Specific Gravity, Urine 1.025 (1.005-1.030); Urine Appearance Clear (CLEAR); Urine Color Yellow (Yellow); Urobilinogen Urine Neg (Negative); WBC Urine RARE /hpf (0-5); pH Urine 5 (5-7)
[2023-07-18 05:13] LABS: Slide Review Slide Review Perform
--- NOTE | 2023-07-18 05:27 | XRR_ITS ---
PROCEDURE INFORMATION: Exam: XR Abdomen Exam date and time: 07/18/2023 5:28 AM Age: 78 years old Clinical indication: Abdominal pain; Localized; Right; Patient HX: C/O RT sided abd discomfort with loose stools. ; Additional info: R flank pain TECHNIQUE: Imaging protocol: Radiologic exam of the abdomen. Views: Frontal supine view of the abdomen. 1 View. COMPARISON: CT abdomen pelvis con [id number] 07/15/2023 6:35 PM FINDINGS: Gastrointestinal tract: There is diffuse gas distension of the colon. No visibly dilated small bowel. Intraperitoneal space: No gross free air. Bones/joints: Bones are unremarkable. XR/XR KUB portable [id number] IMPRESSION: 1. Nonspecific gaseous distention of the colon. 2. No sign of small bowel obstruction.
[2023-07-18 05:31] LABS: Alanine Aminotransferase 31 U/L (0-41); Alkaline Phosphatase 81 U/L (40-130); Anion Gap 15.7 (5-19); Aspartate Amino Transferase 45 U/L (0-40); Blood Urea Nitrogen 16 mg/dL (8-23); Calcium 9.4 mg/dL (8.5-10.5); Carbon Dioxide 27 mmol/L (22-29); Chloride 98 mmol/L (98-107); Globulin 3.2 g/dL (1.3-4.6); Glucose 129 mg/dL (65-115); Osmolality Calculated 287 mOsm/kg (285-295); Potassium 3.7 mmol/L (3.5-5.1); Sodium 137 mmol/L (136-145); Total Bilirubin 0.5 mg/dL (0.15-1.2); Total Protein 7.2 g/dL (6.6-8.7)
[2023-07-18 05:43] VITALS: PULSE 69; O2SAT 98
[2023-07-18] MEDS: diphenoxylate/atropine Tablet 1 TAB PO (06:05)
--- NOTE | 2023-07-18 06:11 | PC.NURSE ---
In room to d/c patient and he states that he is not leaving. States that he is here for the rib pain. Pt points to the right side of his ribs with shirt pulled up. Asked patient if he had spoke with the Doctor about it and he states that he had. Dr Edwards notified and is aware of the rib pain.
--- NOTE | 2023-07-18 06:23 | PC.NURSE ---
Dr Edwards ordered pain medication for the patient and pt refused. States that he was a buddhism growing up and will not take drugs. He wants the Doctor to come in and tell him why his rib hurts. Dr Edwards notified.
[2023-07-18 06:40] VITALS: PULSE 87; RESP 18; O2SAT 94
== END 2023-07-18 06:46 | disposition home or self-care (01) ==
PROVIDERS: Emergency Provider Emergency Medicine; PCP Nurse Practitioner Family
DX: R19.7 Diarrhea, unspecified (principal); Z79.01 Long term (current) use of anticoagulants
CPT/HCPCS: 74018; 80053; 81001; 83605; 83690; 85025; 85610; 85730; 86140; 99284; J7030

== ENCOUNTER → 2023-07-25 16:59 | Outpatient (BNVA) | payer MEDICARE, SELFPAY | PROVIDERS: PCP Nurse Practitioner Family; Visit Provider Nurse Practitioner | DX: R19.7 Diarrhea, unspecified (principal) | CPT/HCPCS: 87045; 87177; 87209; 87338; 87427; 87449; 87493 ==

== ENCOUNTER → 2023-09-16 12:54 | Outpatient (BNVA) | payer MEDICARE, SELFPAY | PROVIDERS: PCP Nurse Practitioner; Visit Provider Nurse Practitioner Family | DX: L57.0 Actinic keratosis (principal); L82.0 Inflamed seborrheic keratosis; L82.1 Other seborrheic keratosis; D22.5 Melanocytic nevi of trunk; L57.8 Other skin changes due to chronic exposure to nonionizing radiation | CPT/HCPCS: 17000; 17110; 99203 ==

== ENCOUNTER → 2023-09-22 13:24 | Outpatient (BNVA) | payer MEDICARE, SELFPAY | PROVIDERS: Absent Provider Nurse Practitioner Family; PCP Nurse Practitioner; Referring Provider Nurse Practitioner Family; Visit Provider Internal Medicine Cardiovascular Disease | DX: I48.91 Unspecified atrial fibrillation (principal); Z79.01 Long term (current) use of anticoagulants | CPT/HCPCS: 99203 ==

== ENCOUNTER → 2023-11-12 12:58 | Outpatient (BNVA) | payer MEDICARE, SELFPAY | PROVIDERS: PCP Nurse Practitioner; Visit Provider Nurse Practitioner Family | DX: R30.0 Dysuria (principal) | CPT/HCPCS: 81000; 87086 ==

== ENCOUNTER → 2024-09-20 15:55 | Outpatient (BNVA) | payer MEDICARE, SELFPAY | PROVIDERS: PCP Nurse Practitioner; Visit Provider Nurse Practitioner Family | DX: D22.5 Melanocytic nevi of trunk (principal); L57.8 Other skin changes due to chronic exposure to nonionizing radiation; L82.0 Inflamed seborrheic keratosis; L29.89 Other pruritus; L53.8 Other specified erythematous conditions; R20.8 Other disturbances of skin sensation; L57.0 Actinic keratosis | CPT/HCPCS: 17000; 17110; 99213 ==

== ENCOUNTER → 2024-12-18 15:15 | Outpatient (BNVA) | payer MEDICARE, SELFPAY | PROVIDERS: PCP Nurse Practitioner; Visit Provider Podiatrist Foot & Ankle Surgery | DX: M71.372 Other bursal cyst, left ankle and foot (principal) | CPT/HCPCS: 73630; 99203 ==